=== PATIENT | female | born 1990 | race American Indian/Alaskan Native ===

== ENCOUNTER 2016-12-24 16:06 | Outpatient (CLI) | payer OTHER ==
--- NOTE | 2016-12-25 09:11 | XRay Report ---
X-RAY LEFT CALCANEUS 2 VIEWS: 12/24/16 CLINICAL: Foot pain. FINDINGS: The calcaneus and other included bones are intact with no fracture. No spurring. The soft tissues are normal. No foreign body or soft tissue air. IMPRESSION: Normal.
== END 2016-12-24 16:07 | disposition home or self-care (01) ==
LOC: SPVIMAG 16:06
PROVIDERS: ATTEND Family Medicine
DX: M79.672 Pain in left foot (principal)